=== PATIENT | female | born 1995 | race Asian ===

== ENCOUNTER 2020-07-31 07:03 | Emergency (ER) | payer BC, SELFPAY ==
--- NOTE | ~2020-07-31 | CT_ITS ---
EXAMINATION: CT HEAD WITHOUT CONTRAST CT FACIAL BONES WITHOUT CONTRAST CT CERVICAL SPINE WITHOUT CONTRAST CLINICAL INFORMATION: Trauma. History of fall down stairs. Headache. COMPARISON: None. TECHNIQUE: Imaging was performed from the skull base to vertex without intravenous administration of contrast. In addition, helical noncontrast CT imaging was acquired through the cervical spine and facial bones and source images were reviewed along with axial reconstructions and sagittal and coronal MPRs. This CT examination was performed using dose optimization techniques as appropriate, variously including the following: *Automated exposure control. *Adjustment of mA and/or kV according to patient size (this includes techniques or standardized protocols for targeted exams where dose is matched to indication/reason for exam; i.e. extremities or head). *Use of iterative reconstruction technique. Total exam dose-length product 1400. mGy-cm FINDINGS: HEAD: No intracranial mass, hemorrhage, or midline shift is visualized. The ventricles and sulci are age-appropriate. No extra-axial collections are identified. FACIAL BONES: There is no evidence of an acute facial bone fracture. The paranasal sinuses are well aerated. No significant dental disease is visualized. The orbits are unremarkable in appearance. CERVICAL SPINE: There is no evidence of acute cervical spine fracture. Vertebral bodies remain normal in height, intervertebral disc spaces are preserved, and alignment is anatomic. No pre- or paravertebral soft tissue abnormality is identified. Limited assessment of the lung apices is unremarkable. Incidental note is made of slightly lobulated and mildly enlarged thyroid gland, may represent diffuse thyroid disease versus physiologic hyperplastic changes. CT/CT facial bones wo con IMPRESSION: 1. No acute intracranial process or discrete facial bone fracture. 2. No acute cervical spine fracture or traumatic subluxation. 3. Incidental note is made of slightly lobulated and mildly enlarged thyroid gland, may represent diffuse thyroid disease versus physiologic hyperplastic changes.
--- NOTE | ~2020-07-31 | CT_ITS ---
EXAMINATION: CT HEAD WITHOUT CONTRAST CT FACIAL BONES WITHOUT CONTRAST CT CERVICAL SPINE WITHOUT CONTRAST CLINICAL INFORMATION: Trauma. History of fall down stairs. Headache. COMPARISON: None. TECHNIQUE: Imaging was performed from the skull base to vertex without intravenous administration of contrast. In addition, helical noncontrast CT imaging was acquired through the cervical spine and facial bones and source images were reviewed along with axial reconstructions and sagittal and coronal MPRs. This CT examination was performed using dose optimization techniques as appropriate, variously including the following: *Automated exposure control. *Adjustment of mA and/or kV according to patient size (this includes techniques or standardized protocols for targeted exams where dose is matched to indication/reason for exam; i.e. extremities or head). *Use of iterative reconstruction technique. Total exam dose-length product 1400. mGy-cm FINDINGS: HEAD: No intracranial mass, hemorrhage, or midline shift is visualized. The ventricles and sulci are age-appropriate. No extra-axial collections are identified. FACIAL BONES: There is no evidence of an acute facial bone fracture. The paranasal sinuses are well aerated. No significant dental disease is visualized. The orbits are unremarkable in appearance. CERVICAL SPINE: There is no evidence of acute cervical spine fracture. Vertebral bodies remain normal in height, intervertebral disc spaces are preserved, and alignment is anatomic. No pre- or paravertebral soft tissue abnormality is identified. Limited assessment of the lung apices is unremarkable. Incidental note is made of slightly lobulated and mildly enlarged thyroid gland, may represent diffuse thyroid disease versus physiologic hyperplastic changes. CT/CT cervical spine w con IMPRESSION: 1. No acute intracranial process or discrete facial bone fracture. 2. No acute cervical spine fracture or traumatic subluxation. 3. Incidental note is made of slightly lobulated and mildly enlarged thyroid gland, may represent diffuse thyroid disease versus physiologic hyperplastic changes.
[2020-07-31 07:09] VITALS: BP 103/65; PULSE 92; RESP 18; O2SAT 100; BMI 22.1
[2020-07-31] MEDS: Acetaminophen 325 MG TABLET 650 MG PO (07:26)
--- NOTE | 2020-07-31 07:31 | ED.FALL ---
HPI - Fall General Chief Complaint: Fall Stated Complaint: FALL DOWN STAIRS, NOSE SWELLING Time Seen by Provider: 07/31/20 07:07 Source: patient Mode of arrival: EMS Limitations: no limitations History of Present Illness HPI Narrative: Patient comes emergency room complaining of a fall. Patient states she was walking down the stairs, accidentally tripped and fell forwards. Patient did not lose consciousness. Patient complaining of nose pain, epistaxis which is controlled now. Patient states that after fall she was able to get up walk and then called EMS. Patient complaining of a mild headache. Related Data Allergies Allergy/AdvReac Type Severity Reaction Status Date / Time No Known Allergies Allergy Verified 07/31/20 07:19 Review of Systems Review of Systems: Constitutional : No Weight loss, No Fever, No Chills, No Night Sweats, No Fatigue, No Malaise ENT/Mouth : No Hearing loss, No Ear Pain, No Nasal Congestion, complaining of nasal bridge pain, epistaxis which resolved. No Sinus Pain, No Hoarseness, No sore throat, No Rhinorrhea, No Swallowing Difficulty Eyes: No Eye Pain, No Swelling, No Redness, No Foreign Body, No Discharge, No Vision Changes Cardiovascular : No Chest Pain, No SOB, No Dyspnea on Exertion, No Orthopnea, No Edema, No Palpitations Respiratory : No Cough, No Sputum, No Wheezing, No Smoke Exposure, No Dyspnea Gastrointestinal : No Nausea, No Vomiting, No Diarrhea, No Constipation, No abdominal Pain, No Hematochezia, No Melena Genitourinary : no irregular bleeding, No Dysuria, No Urinary Frequency, No Hematuria, No Urinary Incontinence, No Urgency, No Flank Pain, No Urinary Flow Changes, No Hesitancy Musculoskeletal : Complaining of mild patellar pain, able to walk with no difficulty. No Myalgias, No Joint Swelling Skin : No Skin Lesions, No rash Neuro : No Weakness, No Numbness, No Paresthesias, No Loss of Consciousness, No Dizziness, mild Headache Psych : No Anxiety/Panic, No Depression, No SI/HI/AH/VH, No Social Issues, Heme/Lymph: No Bruising, No Bleeding,No Lymphadenopathy Endocrine : No Polyuria, No Polydipsia, No Temperature Intolerance [facility] Past Medical History Medical History No known health problems Social History Social History Advance Directives: No Advance Directives Information Provided: No Physical Exam Vital Signs: Vital Signs: Last Vital Signs Pulse 92 07/31/20 07:09 Resp 18 07/31/20 07:09 BP 103/65 07/31/20 07:09 Pulse Ox 100 07/31/20 07:09 Body Mass Index 22.1 Appearance: Alert. Oriented X3. No acute distress. Eyes: Pupils equal, round and reactive to light. ENT: Pharynx normal. Small abrasion to the nasal bridge, is mild swelling, mild pain to palpation, no epistaxis, no septal hematoma Neck: Normal inspection. Neck supple. No lymph nodes noted. No crepitus CVS: Normal heart rate and rhythm. Pulses normal. Normal S1 and S2 Respiratory: No respiratory distress. Breath sounds normal. No Wheezing. No rales Abdomen: Soft and nontender. No rigidity. No distention. good BS x4 Skin: Skin warm and dry. Mild abrasions to bilateral knees Extremities: No lower extremity edema. Able to flex and extend bilateral hips, knees ankles and move all extremities Neuro: Oriented X 3. No motor deficit. No sensory deficit. Moving all extermities. No slurred speech. Course Course Course Narrative: Patient only has mild abrasions, on CT scans, no acute fractures. MDM - Fall Imaging Data Head/cervical/facial bone CT: Radiologist's impression: FINDINGS: HEAD: No intracranial mass, hemorrhage, or midline shift is visualized. The ventricles and sulci are age-appropriate. No extra-axial collections are identified. FACIAL BONES: There is no evidence of an acute facial bone fracture. The paranasal sinuses are well aerated. No significant dental disease is visualized. The orbits are unremarkable in appearance. CERVICAL SPINE: There is no evidence of acute cervical spine fracture. Vertebral bodies remain normal in height, intervertebral disc spaces are preserved, and alignment is anatomic. No pre- or paravertebral soft tissue abnormality is identified. Limited assessment of the lung apices is unremarkable. Incidental note is made of slightly lobulated and mildly enlarged thyroid gland, may represent diffuse thyroid disease versus physiologic hyperplastic changes. CT/CT cervical spine w con IMPRESSION: 1. No acute intracranial process or discrete facial bone fracture. 2. No acute cervical spine fracture or traumatic subluxation. 3. Incidental note is made of slightly lobulated and mildly enlarged thyroid gland, may represent diffuse thyroid disease versus physiologic hyperplastic changes. Discharge Plan Discharge Clinical Impression: Abrasion Contusion of nose Qualifiers: Encounter type: initial encounter Qualified Code(s): S00.33XA - Contusion of nose, initial encounter Patient Disposition: Home, Self-Care Instructions: Abrasion (ED) Additional Instructions: Please follow-up with your primary care physician tomorrow. If you have any worsening or new symptoms, please return to the emergency room or call [phone]
== END 2020-07-31 11:30 | disposition home or self-care (01) ==
PROVIDERS: Emergency Provider Emergency Medicine
DX: S00.31XA Abrasion of nose, initial encounter (principal); S00.33XA Contusion of nose, initial encounter; R51.9 Headache, unspecified; M54.2 Cervicalgia; R04.0 Epistaxis; W10.9XXA Fall (on) (from) unspecified stairs and steps, initial encounter; Y93.01 Activity, walking, marching and hiking; Y92.9 Unspecified place or not applicable; Y99.9 Unspecified external cause status
CPT/HCPCS: 70450; 70486; 72126; 99284